=== PATIENT | female | born 1990 | race Caucasian/White ===

== ENCOUNTER 2020-07-10 06:05 | Emergency (ER) | payer OTHER, SELFPAY ==
[2020-07-10 06:08] VITALS: BP 128/78; PULSE 86; RESP 19; TEMP 36.8; O2SAT 100
[2020-07-10 06:34] VITALS: BP 149/79; PULSE 84; RESP 19; TEMP 37.6; O2SAT 100
[2020-07-10 06:46] LABS: Add Urine Microscopic? YES; Appearance Urine Cloudy (Clear); Bacteria Urine Trace /hpf; Bilirubin Urine Negative (Negative); Blood Urine 1+ (Negative); Color Urine Yellow (Yellow); Glucose Urine UA Negative (Negative); Ketones Urine Negative (Negative); Leukocyte Esterase Ur 3+ LEU/UL (Negative); Mucus Urine Moderate /lpf; Nitrate Urine Negative (Negative); Protein Urine 2+ mg/dL (Negative); RBC Urine >75 /hpf (0-2); Squamous Epithelial Cell Urine Occasional /hpf (Few); Urobilinogen Urine Negative mg/dL (<2.0); WBC Urine >75 /hpf
[2020-07-10 06:57] LABS: Specific Grav Ur 1.032 (1.001-1.035)
--- NOTE | 2020-07-10 07:12 | ED.FEMALEGU ---
HPI - Female Genitourinary General Chief complaint: Urogenital-Female Stated complaint: UTI Time Seen by Provider: 07/10/20 06:10 History of Present Illness HPI Narrative: Patient is a 30-year-old female who presents ER with burning urination and vaginal discharge. Patient reports she started having burning urination and discharge 3 days ago. Its increased over the weekend. She has been having subjective fevers and chills. She is developed lower abdominal cramping and pain that also moves into her left back and left upper quadrant. No nausea or vomiting. She reports she had unprotected sexual intercourse with another individual approximately 5 to 7 days before her symptoms began. She does have concern that she could potentially have a sexually transmitted infection. Related Data Allergies Allergy/AdvReac Type Severity Reaction Status Date / Time No Known Allergies Allergy Verified 07/10/20 07:25 Review of Systems Review of Systems: All systems reviewed & are unremarkable except as noted in HPI and below Constitutional: Constitutional: Reports chills and Reports fatigue Comments: Fevers Gastrointestinal: Gastrointestinal: Reports abdominal pain, Denies nausea and Denies vomiting Genitourinary: Genitourinary: Denies abnormal vaginal bleeding, Reports dysuria, Reports pelvic pain, Reports urinary incontinence and Reports vaginal discharge PMFSH Past Medical History Medical History (Updated 07/10/20 @ 07:25 by Agustín Castillo MD) Healthy female adult Surgical History Surgical History (Updated 07/10/20 @ 07:15 by Agustín Castillo MD) No history of previous surgery Social History Social History (Updated 07/10/20 @ 07:15 by Agustín Castillo MD) Substance use type: marijuana Gender identity (if verbalized by the patient): Female Exam Narrative: Exam Narrative: GENERAL: Anxious-appearing, well-nourished, and in no acute distress. HEAD: Normocephalic, atraumatic. ENT: Mucous membranes moist. CHEST: Clear to auscultation. No respiratory distress. HEART: Regular rate and rhythm. Normal peripheral pulses. ABDOMEN: Soft, suprapubic tenderness without guarding, left upper quadrant tenderness without guarding, nondistended. : Normal external genitalia. Speculum exam with significant amount of discharge from the cervix with friable cervix. CMT noted. EXTREMITIES: Normal range of motion. No edema. SKIN: Warm, dry, no rash. NEURO: Alert and oriented x3. Course Course Emergency Course: Patient be treated clinically as PID given history and exam findings. Discussed case with Dr. He who will follow patient up for further treatment evaluation. Patient received 500 mg of Rocephin IM in ER and be discharged with doxycycline and Flagyl. Vital Signs Vital signs: Vital Signs Temperature 98.2 F 07/10/20 06:08 Pulse Rate 86 07/10/20 06:08 Respiratory Rate 19 07/10/20 06:08 Blood Pressure 128/78 07/10/20 06:08 Pulse Oximetry 100 07/10/20 06:08 Temperature 99.7 F H 07/10/20 06:34 Pulse Rate 84 07/10/20 06:34 Respiratory Rate 19 07/10/20 06:34 Blood Pressure 149/79 H 07/10/20 06:34 Pulse Oximetry 100 07/10/20 06:34 MDM - Female Genitourinary Lab Data Result diagrams: 07/10/20 07:10 07/10/20 07:10 Labs: Lab Results 07/10/20 07/10/20 07/10/20 Range/Units 06:28 07:10 07:10 WBC 8.2 (4.5-10.0) K/mm3 RBC 4.54 (4.2-5.4) M/mm3 Hgb 14.2 (12.0-15.0) g/dL Hct 42.0 (37.0-47.0) % MCV 92.5 (80-100) fl MCH 31.3 (26-34) pg MCHC 33.8 (32-36) g/dl RDW 12.1 (11.5-14.5) % Plt Count 225 (150-375) k/mm3 MPV 10.0 (7.4-10.4) fl Immature Gran % (Auto) 1.1 H (0-0.5) % Neut % (Auto) 69.9 (45.5-73.1) % Lymph % (Auto) 15.1 L (18.3-44.2) % [place] % (Auto) 12.8 H (2.6-8.5) % Eos % (Auto) 0.9 (0-4.4) % Baso % (Auto) 0.2 (0.2-1.2) % Lymph # (Auto) 1.24 (0.9-3.2) K/mm3 [place] #
[2020-07-10] MEDS: ONDANSETRON INJ 4 MG/2 ML VIAL IV PUSH (07:20)
[2020-07-10] MEDS: SODIUM CHLORIDE 0.9% IV 1,000 ML 999 ML IV CONT (07:20)
[2020-07-10] MEDS: KETOROLAC 30 MG/ML VIAL (*BKC) IV PUSH (07:21)
[2020-07-10] MEDS: cefTRIAXone 1 GM VIAL 0.5 GM IM (07:25)
[2020-07-10 07:30] LABS: Anion Gap 8 mmol/L (8-16); Blood Urea Nitrogen 11 mg/dL (7-17); Carbon Dioxide 29 mmol/L (22-30); Chloride 103 mmol/L (98-107); Estimated CRCL calculation 108 ml/min; Estimated Glomerular Filt Rate > 60; Glucose 113 mg/dL (65-105); Potassium 3.8 mmol/L (3.4-5.0); Sodium 140 mmol/L (137-145)
--- NOTE | 2020-07-10 07:30 | PC.NURSE ---
PT RESTING QUIETLY AT THIS TIME. IVF INITIATED. CONT TO MONITOR AND AWAIT FURTHER DISPO.
[2020-07-10 07:32] LABS: Basophils Percent Auto 0.2 % (0.2-1.2); Eosinophils Absolute Auto 0.1 K/mm3 (0-0.3); Eosinophils Percent Auto 0.9 % (0-4.4); Hemoglobin 14.2 g/dL (12.0-15.0); Immature Granulocyte Absolute 0.09 K/mm3 (0.00-0.031); Immature Granulocyte Percent A 1.1 % (0-0.5); Lymphocytes Absolute Auto 1.24 K/mm3 (0.9-3.2); Lymphocytes Percent Auto 15.1 % (18.3-44.2); Mean Corpuscular HGB Conc 33.8 g/dl (32-36); Mean Corpuscular Hemoglobin 31.3 pg (26-34); Mean Corpuscular Volume 92.5 fl (80-100); Monocytes Absolute Auto 1.1 K/mm3 (0.1-0.6); Monocytes Percent Auto 12.8 % (2.6-8.5); Neutrophils Absolute Auto 5.7 K/mm3 (1.3-6.7); Neutrophils Percent Auto 69.9 % (45.5-73.1); Platelet Count Result 225 k/mm3 (150-375); Red Blood Count 4.54 M/mm3 (4.2-5.4); Red Cell Distribution Width 12.1 % (11.5-14.5); White Blood Count 8.2 K/mm3 (4.5-10.0)
[2020-07-10 08:30] VITALS: BP 120/65; PULSE 69; RESP 16; O2SAT 99
== END 2020-07-10 08:30 | disposition home or self-care (01) ==
PROVIDERS: Emergency Provider Emergency Medicine; PCP Internal Medicine Adolescent Medicine
DX: N73.9 Female pelvic inflammatory disease, unspecified (principal)
CPT/HCPCS: 36415; 80048; 81001; 85025; 87070; 87086; 87088; 87491; 87591; 87808; 96372; 96374; 96375; 99284; J0696; J1885; J2405; J7030

== ENCOUNTER 2020-08-23 11:42 | Emergency (ER) | payer OTHER, SELFPAY ==
[2020-08-23 12:12] VITALS: PULSE 87; RESP 20; TEMP 36.7; O2SAT 98
--- NOTE | 2020-08-23 12:18 | ED.GENADULT ---
HPI - General Adult General Chief complaint: Upper Respiratory Infection Stated complaint: Sore throat,Headache Time Seen by Provider: 08/23/20 12:18 Source: patient and RN notes reviewed Mode of arrival: ambulatory Limitations: no limitations History of Present Illness HPI narrative: 30-year-old female presents with complaints of cough and intermittent headache (not the worst of her life) for the past 2 days. Mitesh reports increasing symptoms over the past 24 hours with sore throat. Tylenol and Ibuprofen last on 08/23/23 with little relief. Sick contact 2 days prior to becoming ill. No high fevers, drooling, neck or throat swelling. Pain is bilateral. Hurts to swallow. Exacerbation factors consist of smoke exposure, eating, and drinking. Rhinorrhea and nasal congestion. No voice change. No nausea, vomiting, or abdominal pain. Tolerating liquids well. Denies dyspnea, difficulty swallowing, jaw pain, dental pain, facial pain, foreign body sensation, and rash. LMP 3 months ago irregular menstrual cycle due to PCOS. Remains active. The patient reports she have not been diagnosed with COVID-19. The patient reports she is not waiting for the results of a COVID-19 lab test. The patient reports she do not have chills, weakness, or fatigue. The patient reports she do not have a worsening cough or shortness of breath. Denies chest pain. The patient reports she do not have any loss of taste or smell and diarrhea. Denies recent traveling. Denies concerns for COVID-19 or exposures been home with limited outdoor exposure except for essential household needs, work, and return home. At this time, patient is not suspected of having COVID-19. Some parts of this dictation were generated by voice recognition software and may contain typographical and/or grammatical inaccuracies. Related Data Allergies Allergy/AdvReac Type Severity Reaction Status Date / Time No Known Allergies Allergy Verified 08/23/20 12:00 Review of Systems Review of Systems: Narrative: CONSTITUTIONAL: Denies fever, chills, sweats. EYES: Denies visual changes, redness, discharge. ENT: Denies otalgia. Complains of rhinorrhea, sore throat, congestion. CARDIOVASCULAR: Denies chest pain, palpitations, edema. RESPIRATORY: Denies dyspnea, wheezing. Complains of cough. GASTROINTESTINAL: Denies abdominal pain, nausea, vomiting, diarrhea. GENITOURINARY: Denies dysuria, hematuria, abnormal discharge. SKIN: Denies rash or itching. MUSCULOSKELETAL: Denies acute back pain, joint pain, or myalgia. NEUROLOGIC: Denies numbness or focal weakness. Complains of [place]. PSYCHIATRIC: Denies anxiety or depression. All systems reviewed & are unremarkable except as noted in HPI and below. [facility] Past Medical History Medical History Carpal tunnel syndrome History of PCOS Smoker Surgical History Surgical History (Updated 08/30/20 @ 19:31 by THOMAS Muñoz) History of carpal tunnel surgery History of cholecystectomy Family History Family History (Updated 08/23/20 @ 17:12 by THOMAS Muñoz) Father , Drowned No problems noted. Mother Hypertension Depression Fibromyalgia Social History Social History (Updated 08/23/20 @ 17:16 by THOMAS Muñoz) Years smoked: 14 Smoking status: Current every day smoker Tobacco type: cigarettes Second hand tobacco smoke exposure: No Alcohol intake: current Substance use: current Substance use type: marijuana Living arrangements: with family Occupation/Education: occupation Gender identity (if verbalized by the patient): Female Sexual Orientation (if Verbalized by the Patient): Straight or Heterosexual Comments At time of signature, agree with nurse past medical, surgical, social, and family history. There is no relevant family history pertinent to the presenting complaint. Exam Narrative: Exam Narrative: GENERAL: This is a well-nourished, well-developed patien
[2020-08-23 12:30] VITALS: BP 106/68; PULSE 67
[2020-08-24 17:45] LABS: SARS-CoV-2 RNA PCR Negative
== END 2020-08-23 12:55 | disposition home or self-care (01) ==
PROVIDERS: Emergency Provider Nurse Practitioner Family
DX: B34.9 Viral infection, unspecified (principal); Z20.822 Contact with and (suspected) exposure to COVID-19; F17.210 Nicotine dependence, cigarettes, uncomplicated; E28.2 Polycystic ovarian syndrome
CPT/HCPCS: 87081; 87804; 87880; 99213; C9803; G0463; U0003; U0005

== ENCOUNTER 2020-10-17 16:18 | Emergency (ER) | payer OTHER, SELFPAY ==
[2020-10-17 16:25] VITALS: BP 132/62; PULSE 79; RESP 16; TEMP 37.1; O2SAT 100
[2020-10-17 16:37] VITALS: BP 132/62; PULSE 79; RESP 16; TEMP 37.1; O2SAT 100
--- NOTE | 2020-10-17 16:38 | ED.SKABFB ---
HPI - Skin/Abscess/Foreign Bdy General Chief complaint: Skin/Abscess/Foreign Body Stated complaint: insect bite Time Seen by Provider: 10/17/20 16:39 Source: patient and RN notes reviewed Mode of arrival: ambulatory Limitations: no limitations History of Present Illness HPI narrative: 30 year old female who presents to [facility] with complaints of stated insect bite or sting to left mid inner thigh that she has had for the past 2 days. Patient has [id number] red area with 0.2 inner dark blackened scab noted to inner wound area, no induration of tissue noted or any drainage present. Patient states that the area is tender and it rubs on her pants,she has been applying Neosporin to area and covering with bandage.She denies any fevers, chills or sweats is concerned she has staph infection in wound and feels she needs an antibiotic. MD complaint: insect bite/sting Onset (ago): day(s) (2) Related Data Home Medications Medication Instructions Recorded Confirmed dextroamphetamine-amphetamine 25 mg PO DAILY 10/17/20 10/17/20 Allergies Allergy/AdvReac Type Severity Reaction Status Date / Time No Known Allergies Allergy Verified 10/17/20 16:37 Review of Systems Review of Systems: Narrative: CONSTITUTIONAL: Denies fever, chills, or sweats. EYES: Denies visual changes, redness, or discharge. ENT: Denies rhinorrhea, congestion, sore throat, or otalgia. CARDIOVASCULAR: Denies chest pain, palpitations, or edema. RESPIRATORY: Denies cough or dyspnea. GASTROINTESTINAL: Denies abdominal pain, nausea, vomiting, or diarrhea. GENITOURINARY: Denies dysuria or hematuria. SKIN: Denies rash or itching. lesion to left inner thigh which is red with small center blackened scab MUSCULOSKELETAL: Denies back pain, joint pain, or myalgia. NEUROLOGIC: Denies headache, numbness, or weakness. PSYCHIATRIC: Denies anxiety or depression. All systems reviewed & are unremarkable except as noted in HPI and below PMFSH Past Medical History Medical History ADHD (attention deficit hyperactivity disorder) Carpal tunnel syndrome History of PCOS Smoker Surgical History Surgical History (Updated 08/30/20 @ 19:31 by THOMAS Muñoz) History of carpal tunnel surgery History of cholecystectomy Family History Family History (Updated 08/23/20 @ 17:12 by THOMAS Muñoz) Father , Drowned No problems noted. Mother Hypertension Depression Fibromyalgia Social History Social History (Updated 08/23/20 @ 17:16 by THOMAS Muñoz) Years smoked: 14 Smoking status: Current every day smoker Tobacco type: cigarettes Second hand tobacco smoke exposure: No Alcohol intake: current Substance use: current Substance use type: marijuana Gender identity (if verbalized by the patient): Female Comments At time of signature, agree with nursing past medical, surgical, social and family history. There is no relevant family history pertinent to the presenting complaint Exam Narrative: Exam Narrative: GENERAL: Well-appearing, well-nourished, and in no acute distress. HEAD: Normocephalic, atraumatic. EYES: PERRLA and EOMI. ENT: Nares clear, no rhinorrhea or epistaxis. Mucous membranes moist.TM's normal with noted good light reflex, no redness of throat with no lesions or exudates. NECK: Supple. no lymphadenopathy CHEST: Clear to auscultation. No respiratory distress.SAO2 100% on room air HEART: Regular rate and rhythm. No murmur heard. Normal peripheral pulses. ABDOMEN: Soft, nontender, nondistended, normal active bowel sounds. EXTREMITIES: Normal range of motion. No edema. SKIN: Warm, dry, no rash. [id number] red tissue to left inner thigh with 0.2cm diameter blackened scab with no induration of tissue, no acute warmth to skin area, patient reports minimal increase in redness but is tender to palpation, reports no drainage from tissue. NEURO: No focal deficits. Alert and oriented x3. Course Vital Signs Vital sign
--- NOTE | 2020-10-17 16:50 | ED.SKABFB ---
HPI - Skin/Abscess/Foreign Bdy General Chief complaint: Skin/Abscess/Foreign Body Stated complaint: insect bite Time Seen by Provider: 10/17/20 16:39 Source: patient and RN notes reviewed Mode of arrival: ambulatory Limitations: no limitations History of Present Illness HPI narrative: 2 days insect bite left inner thigh complaint: insect bite/sting Related Data Home Medications Medication Instructions Recorded Confirmed dextroamphetamine-amphetamine 25 mg PO DAILY 10/17/20 10/17/20 Allergies Allergy/AdvReac Type Severity Reaction Status Date / Time No Known Allergies Allergy Verified 10/17/20 16:37 Review of Systems Review of Systems: Narrative: CONSTITUTIONAL: Denies fever, chills, or sweats. EYES: Denies visual changes, redness, or discharge. ENT: Denies rhinorrhea, congestion, sore throat, or otalgia. CARDIOVASCULAR: Denies chest pain, palpitations, or edema. RESPIRATORY: Denies cough or dyspnea. GASTROINTESTINAL: Denies abdominal pain, nausea, vomiting, or diarrhea. GENITOURINARY: Denies dysuria or hematuria. SKIN: Denies rash or itching. MUSCULOSKELETAL: Denies back pain, joint pain, or myalgia. NEUROLOGIC: Denies headache, numbness, or weakness. PSYCHIATRIC: Denies anxiety or depression. All systems reviewed & are unremarkable except as noted in HPI and below PMFSH Past Medical History Medical History ADHD (attention deficit hyperactivity disorder) Carpal tunnel syndrome History of PCOS Smoker Surgical History Surgical History (Updated 08/30/20 @ 19:31 by THOMAS Muñoz) History of carpal tunnel surgery History of cholecystectomy Family History Family History (Updated 08/23/20 @ 17:12 by THOMAS Muñoz) Father , Drowned No problems noted. Mother Hypertension Depression Fibromyalgia Social History Social History (Updated 08/23/20 @ 17:16 by THOMAS Muñoz) Years smoked: 14 Smoking status: Current every day smoker Tobacco type: cigarettes Second hand tobacco smoke exposure: No Alcohol intake: current Substance use: current Substance use type: marijuana Gender identity (if verbalized by the patient): Female Comments At time of signature, agree with nursing past medical, surgical, social and family history. There is no relevant family history pertinent to the presenting complaint Exam Narrative: Exam Narrative: GENERAL: Well-appearing, well-nourished, and in no acute distress. HEAD: Normocephalic, atraumatic. EYES: PERRLA and EOMI. ENT: Nares clear, no rhinorrhea or epistaxis. Mucous membranes moist. NECK: Supple. CHEST: Clear to auscultation. No respiratory distress. HEART: Regular rate and rhythm. No murmur heard. Normal peripheral pulses. ABDOMEN: Soft, nontender, nondistended, normal active bowel sounds. EXTREMITIES: Normal range of motion. No edema. SKIN: Warm, dry, no rash. NEURO: No focal deficits. Alert and oriented x3. Course Vital Signs Vital signs: Vital Signs Temperature 37.1 C 10/17/20 16:25 Pulse Rate 79 10/17/20 16:25 Respiratory Rate 16 10/17/20 16:25 Blood Pressure 132/62 10/17/20 16:25 Pulse Oximetry 100 10/17/20 16:25 Temperature 37.1 C 10/17/20 16:37 Pulse Rate 79 10/17/20 16:37 Respiratory Rate 16 10/17/20 16:37 Blood Pressure 132/62 10/17/20 16:37 Pulse Oximetry 100 10/17/20 16:37 MDM - Skin/Abscess/Foreign Bdy Differential Diagnosis Differential diagnosis: Likely abscess of skin or subcutaneous tissue, cellulitis, contact dermatitis and other (Insect bite) Medical Records Attestation: I reviewed the patient's medical records. Critical Care Time Critical Care Time Critical Care Time: No Discharge Plan Discharge Clinical Impression: Insect bite of thigh, left, infected Patient Disposition: Home, Self-Care Condition: Stable Instructions: Antibiotic Form, Acute Wounds (ED) Additional Instructions: Cleanse wound 2 times daily
== END 2020-10-17 17:07 | disposition home or self-care (01) ==
PROVIDERS: Emergency Provider Registered Nurse
DX: L08.9 Local infection of the skin and subcutaneous tissue, unspecified (principal); S70.362A Insect bite (nonvenomous), left thigh, initial encounter; W57.XXXA Bitten or stung by nonvenomous insect and other nonvenomous arthropods, initial encounter; F17.210 Nicotine dependence, cigarettes, uncomplicated; F90.9 Attention-deficit hyperactivity disorder, unspecified type; E28.2 Polycystic ovarian syndrome
CPT/HCPCS: 99211; G0463

== ENCOUNTER 2020-11-12 12:17 | Emergency (ER) | payer OTHER, SELFPAY ==
[2020-11-12 12:29] VITALS: BP 120/61; PULSE 75; RESP 18; TEMP 36.8; O2SAT 99
--- NOTE | 2020-11-12 12:34 | ED.FEMALEGU ---
HPI - Female Genitourinary General Chief complaint: Urogenital-Female Stated complaint: UTI Time Seen by Provider: 11/12/20 12:34 Source: patient and RN notes reviewed Mode of arrival: ambulatory Limitations: no limitations History of Present Illness HPI Narrative: 30-year-old female presents to the [facility] with complaints of urinary burning and lower abdominal, suprapubic pressure for the last 3-4 days. Dates she noted some pink on the toilet paper. Nothing in the toilet. No gross hematuria. Has some suprapubic pressure but no abdominal pain. No fevers. Denies nausea vomiting or diarrhea. Has been using Azo symptoms. Denies chances of an STD. Related Data Home Medications Medication Instructions Recorded Confirmed dextroamphetamine-amphetamine 25 mg PO DAILY 10/17/20 11/12/20 drospirenone-ethinyl estradiol 1 tablet PO DAILY 11/12/20 11/12/20 escitalopram oxalate 10 mg PO DAILY 11/12/20 11/12/20 Allergies Allergy/AdvReac Type Severity Reaction Status Date / Time No Known Allergies Allergy Verified 10/17/20 16:37 Review of Systems Review of Systems: All systems reviewed & are unremarkable except as noted in HPI and below Constitutional: Constitutional: Reports as per HPI and Reports chills Eyes: Eyes: Reports no additional eye complaints ENT: Reports system reviewed and no additional complaints, except as documented Cardiovascular: Cardiovascular: Reports no additional cardiovascular complaints and Denies chest pain Respiratory: Respiratory: Reports no additional respiratory complaints, Denies cough, Denies dyspnea and Denies wheezing Gastrointestinal: Gastrointestinal: Reports as per HPI, Reports abdominal pain (Abdominal pressure suprapubic), Denies bloating, Denies diarrhea, Denies nausea and Denies vomiting Genitourinary: Genitourinary: Reports as per HPI, Denies abnormal vaginal bleeding, Reports hematuria, Reports nocturia, Reports dysuria, Denies flank pain and Denies urinary incontinence Musculoskeletal: Musculoskeletal: Reports no additional musculoskeletal complaints and Denies back pain Integumentary/Breasts: Skin/Breast: Reports system reviewed and no additional complaints, except as docu and Denies rash Neurologic: Reports system reviewed and no additional complaints, except as documented, Denies dizziness, Denies syncope, Denies headache(s), Denies focal weakness and Denies numbness Psychiatric: Psychiatric: Reports no additional psychiatric complaints Allergic/Immunologic: Allergic/Immunologic: Reports no additional allergic/immunologic complaints PMFSH Past Medical History Medical History ADHD (attention deficit hyperactivity disorder) Carpal tunnel syndrome History of PCOS Smoker Surgical History Surgical History History of carpal tunnel surgery History of cholecystectomy Family History Family History Father , Drowned No problems noted. Mother Hypertension Depression Fibromyalgia Social History Social History Years smoked: 14 Smoking status: Current every day smoker Tobacco type: cigarettes Second hand tobacco smoke exposure: No Alcohol intake: current Substance use: current Substance use type: marijuana Gender identity (if verbalized by the patient): Female Comments At the time of my signature, I reviewed and agree with the nursing past medical, surgical, social, and family history. There is no relevant family history pertinent to the patient complaint. Exam Const: General: healthy appearing, no acute distress and alert Nutritional Appearance: well nourished Orientation/consciousness: patient oriented x3 Limitations: no limitations HENMT: Head: normal to inspection Eyes: Pupils: Equal, round and reactive pupils present Neck: Neck: normal visual inspection, no lymphadenopath
== END 2020-11-12 12:49 | disposition home or self-care (01) ==
PROVIDERS: Emergency Provider Nurse Practitioner
DX: N39.0 Urinary tract infection, site not specified (principal); F17.210 Nicotine dependence, cigarettes, uncomplicated; F90.9 Attention-deficit hyperactivity disorder, unspecified type; E28.2 Polycystic ovarian syndrome
CPT/HCPCS: 81003; 87077; 87086; 87088; 87186; 99213; G0463

== ENCOUNTER 2020-12-18 08:35 | Emergency (ER) | payer OTHER, SELFPAY ==
--- NOTE | 2020-12-18 08:43 | ED.FEMALEGU ---
HPI - Female Genitourinary General Chief complaint: Urogenital-Female Stated complaint: STD Time Seen by Provider: 12/18/20 09:00 Source: patient and RN notes reviewed Mode of arrival: ambulatory Limitations: no limitations History of Present Illness HPI Narrative: 30-year-old female presents with concern for possible STD exposure. She reports her partner informed her he was possibly exposed to gonorrhea and was tested and treated, he does not have results yet. She denies any symptoms such as purulent discharge, vaginal itching, irritation. She reports she had a medical 1 week ago and has been having vaginal bleeding and mild cramping associated with that. MD elicited complaint: possible STD Related Data Home Medications Medication Instructions Recorded Confirmed dextroamphetamine-amphetamine 25 mg PO DAILY 10/17/20 11/12/20 drospirenone-ethinyl estradiol 1 tablet PO DAILY 11/12/20 11/12/20 escitalopram oxalate 10 mg PO DAILY 11/12/20 11/12/20 Allergies Allergy/AdvReac Type Severity Reaction Status Date / Time No Known Allergies Allergy Verified 12/18/20 08:46 Review of Systems Review of Systems: Narrative: CONSTITUTIONAL: Denies malaise, chills, sweats, or fever. CARDIOVASCULAR: Denies chest pain, palpitations, or edema. RESPIRATORY: Denies cough or dyspnea. GASTROINTESTINAL: Denies abdominal pain, nausea, vomiting GENITOURINARY: Denies dysuria, abnormal vaginal discharge, or hematuria. SKIN: Denies rash or itching. MUSCULOSKELETAL: Denies back pain, joint pain, or myalgia. All systems reviewed & are unremarkable except as noted in HPI and below PMFSH Past Medical History Medical History ADHD (attention deficit hyperactivity disorder) Carpal tunnel syndrome History of PCOS Smoker Surgical History Surgical History History of carpal tunnel surgery History of cholecystectomy Family History Family History Father , Drowned No problems noted. Mother Hypertension Depression Fibromyalgia Social History Social History Years smoked: 14 Smoking status: Current every day smoker Tobacco type: cigarettes Second hand tobacco smoke exposure: No Alcohol intake: current Substance use: current Substance use type: marijuana Gender identity (if verbalized by the patient): Female Comments At time of signature, agree with nursing past medical, surgical, social and family history. There is no relevant family history pertinent to the presenting complaint Exam Narrative: Exam Narrative: GENERAL: Well-appearing, well-nourished, and in no acute distress. HEAD: Normocephalic. EYES: PERRLA, conjunctivae clear. NECK: Supple. No lymphadenopathy CHEST: Clear to auscultation. No respiratory distress. HEART: Regular rate and rhythm. ABDOMEN: Soft, nontender upon palpation, nondistended, normal active bowel sounds, no palpable or pulsatile masses, no guarding. No CVA tenderness SKIN: Warm, dry, no rash. NEURO: Alert and oriented x3. PSYCH: Normal mood and affect Course Course Emergency Course: Patient is aware of diagnosis, understands and agrees to treatment plan. Anticipatory guidance given. Patient agrees to follow-up as directed and is aware of reasons to seek care at the emergency department. Portions of this record may have been created with voice recognition software Vital Signs Vital signs: Reviewed. MDM - Female Genitourinary MDM Narrative Medical decision making narrative: Exam findings show no acute concerns or changes; patient is non-toxic appearing and is in no distress. Patient is appropriate for outpatient treatment and follow-up. Critical Care Time Critical Care Time Critical Care Time: No Discharge Plan Discharge Clinical Impression: Possible exposure to STD Patient Disposition: Home, Self-Care C
[2020-12-18 08:46] VITALS: BP 123/65; PULSE 83; RESP 16; TEMP 36.9; O2SAT 100
[2020-12-18 08:48] VITALS: BP 123/65; PULSE 83; RESP 16; TEMP 36.9; O2SAT 100
[2020-12-18] MEDS: DOXYCYCLINE HYCLATE 100 MG TABLET PO (09:27)
[2020-12-18] MEDS: LIDOCAINE HCL 1% LOCAL INJ 20 ML VIAL 2.1 ML INFILTRATE (09:27)
[2020-12-18] MEDS: cefTRIAXone 250 MG VIAL 500 MG IM (09:27)
== END 2020-12-18 09:43 | disposition home or self-care (01) ==
PROVIDERS: Emergency Provider Nurse Practitioner
DX: Z11.3 Encounter for screening for infections with a predominantly sexual mode of transmission (principal); F17.210 Nicotine dependence, cigarettes, uncomplicated; F90.9 Attention-deficit hyperactivity disorder, unspecified type; E28.2 Polycystic ovarian syndrome
CPT/HCPCS: 87491; 87591; 87661; 96372; 99214; A9270; G0463; J0696

== ENCOUNTER 2021-03-13 16:14 | Emergency (ER) | payer OTHER, MEDICAID, SELFPAY ==
[2021-03-13 16:22] VITALS: BP 129/77; PULSE 69; RESP 16; TEMP 37.1; O2SAT 99
--- NOTE | 2021-03-13 16:41 | ED.SKABFB ---
HPI - Skin/Abscess/Foreign Bdy General Chief complaint: Skin/Abscess/Foreign Body Stated complaint: rash Time Seen by Provider: 03/13/21 16:54 Source: patient and RN notes reviewed Mode of arrival: ambulatory Limitations: no limitations History of Present Illness HPI narrative: 30-year-old female presents concern for possible infection at her hairline. Reports she had her haircut with clippers and after that noticed a red raised area behind her left ear. She reports the area is becoming more painful, swollen, red. Reports nausea and general malaise. She denies fever. She reports using Aleve and ibuprofen with little relief. Reports worsening pain with turning her neck. MD complaint: abscess/boil Related Data Allergies Allergy/AdvReac Type Severity Reaction Status Date / Time No Known Allergies Allergy Verified 12/18/20 08:46 Review of Systems Review of Systems: CONSTITUTIONAL: Denies malaise, chills, sweats, or fever. CARDIOVASCULAR: Denies chest pain, palpitations, or edema. RESPIRATORY: Denies cough or dyspnea. GASTROINTESTINAL: Reports nausea SKIN: Reports painful, raised red bump behind her left ear MUSCULOSKELETAL: Denies myalgia. All systems reviewed & are unremarkable except as noted in HPI and below PMFSH Past Medical History Medical History ADHD (attention deficit hyperactivity disorder) Carpal tunnel syndrome History of PCOS Smoker Surgical History Surgical History History of carpal tunnel surgery History of cholecystectomy Family History Family History Father , Drowned No problems noted. Mother Hypertension Depression Fibromyalgia Social History Social History Years smoked: 14 Smoking status: Current every day smoker Tobacco type: cigarettes Second hand tobacco smoke exposure: No Alcohol intake: current Substance use: current Substance use type: marijuana Gender identity (if verbalized by the patient): Female Sexual Orientation (if Verbalized by the Patient): Straight or Heterosexual Comments At time of signature, agree with nursing past medical, surgical, social and family history. There is no relevant family history pertinent to the presenting complaint Exam Narrative: GENERAL: Well-appearing, well-nourished, and in no acute distress. HEAD: Normocephalic, atraumatic. EYES: PERRLA, conjunctivae clear, and EOMI. ENT: Mucous membranes moist. Oropharynx without edema, erythema or lesions. NECK: Supple. No lymphadenopathy CHEST: Clear to auscultation. No respiratory distress. HEART: Regular rate and rhythm. SKIN: Warm, dry. Approximately 3 cm in diameter area of erythema, induration, tenderness with central scabbed raised bump noted behind the left ear under the hairline. No drainage noted NEURO: Alert and oriented x3. PSYCH: Normal mood and affect Course Course Emergency Course: Patient is aware of diagnosis, understands and agrees to treatment plan. Anticipatory guidance given. Patient agrees to follow-up as directed and is aware of reasons to seek care at the emergency department. Portions of this record may have been created with voice recognition software Vital Signs Vital signs: Vital Signs Temperature 98.7 F 03/13/21 16:22 Pulse Rate 69 03/13/21 16:22 Respiratory Rate 16 03/13/21 16:22 Blood Pressure 129/77 03/13/21 16:22 Pulse Oximetry 99 03/13/21 16:22 Temperature 98.7 F 03/13/21 16:22 Pulse Rate 69 03/13/21 16:22 Respiratory Rate 16 03/13/21 16:22 Blood Pressure 129/77 03/13/21 16:22 Pulse Oximetry 99 03/13/21 16:22 Reviewed. MDM - Skin/Abscess/Foreign Bdy MDM Narrative Medical decision making narrative: Exam findings show no acute concerns or changes; patient is non-toxic appearing and is in no distress. Patient is appropriate for outpatient treatment
== END 2021-03-13 17:14 | disposition home or self-care (01) ==
PROVIDERS: Emergency Provider Nurse Practitioner
DX: L03.221 Cellulitis of neck (principal); F17.210 Nicotine dependence, cigarettes, uncomplicated; E28.2 Polycystic ovarian syndrome
CPT/HCPCS: 99213; G0463

== ENCOUNTER 2021-03-23 10:46 | Emergency (ER) | payer OTHER, MEDICAID, SELFPAY ==
--- NOTE | 2021-03-23 10:55 | ED.GENADULT ---
HPI - General Adult General Chief complaint: Unspecified <Eliane Tian PA-C - Last Filed: 03/23/21 11:49> Stated complaint: hand/foot/mouth disease, increased swelling <BRADEN Lopez Last Filed: 03/23/21 11:49> Time Seen by Provider: 03/23/21 10:55 <BRADEN Lopez Last Filed: 03/23/21 11:49> Source: patient <BRADEN Lopez Last Filed: 03/23/21 11:49> Mode of arrival: ambulatory <BRADEN Lopez Last Filed: 03/23/21 11:49> Limitations: no limitations <BRADEN Lopez Last Filed: 03/23/21 11:49> History of Present Illness HPI narrative: Patient is here for treatment of ngwo-pymu-siu-mouth disease. Her 3-year-old daughter was diagnosed with it last week. She became symptomatic yesterday. Now has a rash on her palms, the soles of her feet, and some sores on her tongue. She has swelling of her hands and feet as well and is here for the pain associated with that. She denies any fever. She has been treating at home with Tylenol. <Eliane Tian PA-C - Last Filed: 03/23/21 11:49> Onset (ago): day(s) <Eliane Tian PA-C - Last Filed: 03/23/21 11:49> Severity scale (1-10): 7 <BRADEN Lopez Last Filed: 03/23/21 11:49> Associated symptoms: denies other symptoms <BRADEN Lopez Last Filed: 03/23/21 11:49> Related Data Allergies/adverse reactions: Allergies Allergy/AdvReac Type Severity Reaction Status Date / Time No Known Allergies Allergy Verified 12/18/20 08:46 <BRADEN Lopez Last Filed: 03/23/21 11:49> Review of Systems Review of Systems: All systems reviewed & are unremarkable except as noted in HPI and below <Eliane Tian PA-C - Last Filed: 03/23/21 11:49> [facility] Past Medical History Medical History: Medical History ADHD (attention deficit hyperactivity disorder) Carpal tunnel syndrome History of PCOS Smoker <Eliane Tian PA-C - Last Filed: 03/23/21 11:49> Surgical History Surgical History: Surgical History History of carpal tunnel surgery History of cholecystectomy <Eliane Tian PA-C - Last Filed: 03/23/21 11:49> Family History Family History: Family History Father , Drowned No problems noted. Mother Hypertension Depression Fibromyalgia <Eliane Tian PA-C - Last Filed: 03/23/21 11:49> Social History Social History: Social History Years smoked: 14 Smoking status: Current every day smoker Tobacco type: cigarettes Second hand tobacco smoke exposure: No Alcohol intake: current Substance use: current Substance use type: marijuana Gender identity (if verbalized by the patient): Female Sexual Orientation (if Verbalized by the Patient): Straight or Heterosexual <Eliane Tian PA-C - Last Filed: 03/23/21 11:49> Exam Const: General: healthy appearing <Eliane Tian PA-C - Last Filed: 03/23/21 11:49> Other: tearful <Eliane Tian PA-C - Last Filed: 03/23/21 11:49> HENMT: Head: normal to inspection <Eliane Tian PA-C - Last Filed: 03/23/21 11:49> Mouth: Yes moist mucous membranes <Eliane Tian PA-C - Last Filed: 03/23/21 11:49> Throat: posterior oropharynx abnormal (speckling) <Eliane Tian PA-C - Last Filed: 03/23/21 11:49> Eyes: Conjunctivae: conjunctivae normal <Eliane Tian PA-C - Last Filed: 03/23/21 11:49> Pupils: Equal, round and reactive pupils present <Eliane Tian PA-C - Last Filed: 03/23/21 11:49> Neck: Neck: no lymphadenopathy <Eliane Tain PA-C - Last Filed: 03/23/21 11:49> Resp: Effort & Inspection: normal respiratory effort <BRADEN Lopez Last Filed: 03/23/21 11:49> Auscultation: clear to auscultation bilaterally <BRADEN Lopez Last Filed
[2021-03-23] MEDS: IBUPROFEN 600 MG TABLET PO (11:32)
[2021-03-23] MEDS: LIDOCAINE HCL 2% VISC SOLN 15 ML UDC PO (11:33)
[2021-03-23 11:52] VITALS: BP 128/54; TEMP 36.6
== END 2021-03-23 12:01 | disposition home or self-care (01) ==
PROVIDERS: Emergency Provider General Practice
DX: B08.4 Enteroviral vesicular stomatitis with exanthem (principal); E28.2 Polycystic ovarian syndrome; F17.210 Nicotine dependence, cigarettes, uncomplicated
CPT/HCPCS: 99282; A9270

== ENCOUNTER 2021-07-08 14:25 | Emergency (ER) | payer OTHER, MEDICAID, SELFPAY ==
[2021-07-08 14:44] VITALS: BP 112/70; PULSE 75; RESP 18; TEMP 37.8; O2SAT 100
[2021-07-08 14:45] VITALS: BP 112/70; PULSE 75; RESP 18; TEMP 37.8; O2SAT 100
--- NOTE | 2021-07-08 15:33 | ED.FEMALEGU ---
HPI - Female Genitourinary General Chief complaint: PHARMACEUTICAL ANALYST Stated complaint: Pap Test Time Seen by Provider: 07/08/21 15:13 Source: patient and RN notes reviewed Mode of arrival: ambulatory Limitations: no limitations History of Present Illness HPI Narrative: Patient presents today complaining of vaginal bleeding. On 06/29/2021 she finished with a 6-day menstrual cycle. 2 days later she noticed some pink-tinged blood on her toilet paper for 2 to 3 days following and now she has bright red blood as a normal menstrual cycle again. Denies any pain or cramping. States she called her HARD TILE SETTER APPRENTICE's office who could not get her in for an appointment this week, they told her to go to a walk-in clinic for a Pap test . This HARD TILE SETTER APPRENTICE's office is an hour and a half way and she does not have one closer. History of PCOS. MD elicited complaint: vaginal bleeding Related Data Home Medications Medication Instructions Recorded Confirmed No Home Medications 07/08/21 07/08/21 Allergies Allergy/AdvReac Type Severity Reaction Status Date / Time No Known Allergies Allergy Verified 07/08/21 14:44 Review of Systems Review of Systems: CONSTITUTIONAL: Denies body aches, fever, chills, or sweats. EYES: Denies visual changes, redness, or discharge. ENT: Denies rhinorrhea, congestion, sore throat, or otalgia. CARDIOVASCULAR: Denies chest pain, palpitations, or edema. RESPIRATORY: Denies cough or dyspnea. GASTROINTESTINAL: Denies abdominal pain, nausea, vomiting, or diarrhea. GENITOURINARY: Denies dysuria or hematuria.+ Vaginal bleeding SKIN: Denies rash, itching, or wounds. MUSCULOSKELETAL: Denies back pain, joint pain, or myalgia. NEUROLOGIC: Denies headache, numbness, tingling, or weakness. PSYCH: Denies depression or anxiety. [facility] Past Medical History Medical History ADHD (attention deficit hyperactivity disorder) Carpal tunnel syndrome History of PCOS Smoker Surgical History Surgical History History of carpal tunnel surgery History of cholecystectomy Family History Family History Father , Drowned No problems noted. Mother Hypertension Depression Fibromyalgia Social History Social History Years smoked: 14 Smoking status: Current every day smoker Tobacco type: cigarettes Second hand tobacco smoke exposure: No Alcohol intake: current Substance use: current Substance use type: marijuana Gender identity (if verbalized by the patient): Female Sexual Orientation (if Verbalized by the Patient): Straight or Heterosexual Comments At time of signature, I have reviewed and agree with nursing past medical, surgical, social and family history unless otherwise noted. Please see nursing chart for further information. There is no relevant family history pertinent to the presenting complaint Exam Narrative: GENERAL: Well-appearing, well-nourished, and in no acute distress. HEAD: Normocephalic, atraumatic. EYES: EOMI. No redness or drainage. Conjunctivae normal. ENT: Mucous membranes pink and moist. NECK: Normal AROM. CHEST: No respiratory distress. EXTREMITIES: Normal range of motion. No edema. SKIN: Warm, dry, no rash. Capillary refill normal. Normal skin turgor. NEURO: No focal deficits. Alert and oriented x3. Gait steady. PSYCH: Normal affect. No signs of depression or anxiety. Course Course Level of Care: Express Care Visit Vital Signs Vital signs: Vital Signs Temperature 100.0 F H 07/08/21 14:44 Pulse Rate 75 07/08/21 14:44 Respiratory Rate 18 07/08/21 14:44 Blood Pressure 112/70 07/08/21 14:44 Pulse Oximetry 100 07/08/21 14:44 Temperature 100.0 F H 07/08/21 14:45 Pulse Rate 75 07/08/21 14:45 Respiratory Rate 18 07/08/21 14:45 Blood Pressure 112/70 07/08/21 14:45 Pu
== END 2021-07-08 15:30 | disposition home or self-care (01) ==
PROVIDERS: Emergency Provider Nurse Practitioner
DX: N93.9 Abnormal uterine and vaginal bleeding, unspecified (principal); F17.210 Nicotine dependence, cigarettes, uncomplicated; E28.2 Polycystic ovarian syndrome
CPT/HCPCS: 99211; G0463